=== PATIENT | female | born 1965 | race Caucasian/White ===

== ENCOUNTER 2017-02-27 10:25 | Emergency (ER) | payer OTHER ==
[~2017-02-27] VITALS: Ht 152.4 cm; Wt 58.1 kg
[~2017-02-27 10:25] MED LIST: ATEN50TA2 PO; BENA40TA PO; HYDR25TA32 PO; METF500T PO
[2017-02-27 10:42] VITALS: BP 153/70
[2017-02-27] MEDS ORDERED: SIMV10TA1 PO (10:49)
--- NOTE | 2017-02-27 11:05 | NUR ---
aPT PRESENTS TO ER W/C/O DIZZINESS SINCE THIS AM. HX DM, HTN, HYPERLIPIDEMIA.pt feels nauseous and vomitted this morning; SKIN IS PINK/WARM/DRY; AAOX4 WITH EVEN AND STEADY GAIT; LUNGS CLEAR BL; HR EVEN AND REGULAR; PT DENIES ANY FEVER, CP, SOB, OR COUGH AT THIS TIME; PATIENT STATES PAIN OF 4/10 headcahe AT THIS TIME;PATIENT POSITIONED FOR COMFORT; HOB ELEVATED; BEDRAILS UP X2; BED DOWN. ER MD MADE will be notified.
--- NOTE | 2017-02-27 11:13 | NUR ---
PT WENT TO CT SCAN ACCOMPANIED BY TECH.
--- NOTE | 2017-02-27 11:23 | NUR ---
BACK FROM CT SCAN;ACCOMPANIED BY TECH;NO ACUTE DISTRESS NOTED;WILL CONTINUE TO MONITOR PT.
[2017-02-27] MEDS ORDERED: MECLIZINE 25 MG TAB PO ONE (11:45)
--- NOTE | 2017-02-27 12:09 | NUR ---
PT RESTING ON BED;NO ACUTE DISTRESS NOTED;ALL MONITORS IN PLACED;WILL CONTINUE TO MONITOR PT.
--- NOTE | 2017-02-27 12:11 | NUR ---
PT VERBALIZES DECREASE OF PAIN FROM 4/10 TO 2/10 SCALE;NO MOANING/FACIAL GRIMMACING NOTED;WILL CONTINUE TO MONITOR PT.
--- NOTE | 2017-02-27 13:08 | NUR ---
Patient discharged with v/s stable. Written and verbal after care instructions given and explained. Patient alert, oriented and verbalized understanding of instructions. Ambulatory with steady gait. All questions addressed prior to discharge. ID band removed. Patient advised to follow up with PMD. Rx of MOTRIN AND MECLIZINE given. Patient educated on indication of medication including possible reaction and side effects. Opportunity to ask questions provided and answered.
[2017-02-27 13:09] VITALS: BP 125/71
== END 2017-02-27 13:08 | disposition home or self-care (01) ==
LOC: MED 10:25
DX: R42 Dizziness and giddiness (principal); I10 Essential (primary) hypertension; E11.9 Type 2 diabetes mellitus without complications
CPT/HCPCS: 70450; 82948; 99284; J8597

== ENCOUNTER 2017-08-12 05:55 | Emergency (ER) | payer OTHER ==
[~2017-08-12] VITALS: Ht 154.9 cm; Wt 57.4 kg
[~2017-08-12 05:55] MED LIST changes: +SIMV10TA1 PO
[2017-08-12 06:08] VITALS: BP 116/75
--- NOTE | 2017-08-12 06:35 | NUR ---
PT TAKEN TO BED 12
--- NOTE | 2017-08-12 06:39 | NUR ---
52 Y/O F W/C/O EPIGASTRIC PAIN/NAUSEA/VOMITING X YESTERDAY. MED HX DM, HIGH CHOLESTEROL, DM. ER MD MADE AWARE.
[2017-08-12] MEDS ORDERED: KETOROLAC 30 MG/ML VIAL IVP ONE (07:00)
[2017-08-12] MEDS ORDERED: FAMOTIDINE 20 MG/2 ML VIAL IVP ONE (07:00)
[2017-08-12] MEDS ORDERED: NACL 0.9% 1,000 ML IV ONE (07:00)
[2017-08-12] MEDS ORDERED: ONDANSETRON 4 MG/2 ML VIAL IVP ONE (07:00)
--- NOTE | 2017-08-12 07:00 | NUR ---
Dr. Gates evaluating patient at bedside.
--- NOTE | 2017-08-12 07:28 | NUR ---
Pt report given to JO Saez. Transfer of care at this time.
--- NOTE | 2017-08-12 07:28 | NUR ---
RECEIVED REPORT FROM JO YEE. PT IS AOX4, RR ARE EVEN AND UNLABORED. NAD. PT TO CT VIA W/C ACCOMPANIED BY MAP AND CHART MOUNTER.
[2017-08-12 07:41] LABS: BASOPHILS # (AUTO) 0.1 K/uL (0.00-0.22); BASOPHILS % (AUTO) 0.6 % (0.0-2.0); EOSINOPHILS # (AUTO) 0.1 K/uL (0-0.4); EOSINOPHILS % (AUTO) 0.6 % (0.0-4.0); HEMATOCRIT 44.8 % (36-48); HEMOGLOBIN 15.1 g/dL (12.0-16.0); LYMPHOCYTES # (AUTO) 0.5 K/uL (2.5-16.5); LYMPHOCYTES % (AUTO) 4.7 % (20.5-51.1); MEAN CORPUSCULAR HEMOGLOBIN 28 pg (27-31); MEAN CORPUSCULAR HGB CONC 34 g/dL (33-37); MEAN CORPUSCULAR VOLUME 84 fL (80-94); MONOCYTES # (AUTO) 0.5 K/uL (0.8-1.0); NEUTROPHILS # (AUTO) 9.5 K/uL (1.8-7.7); NEUTROPHILS % (AUTO) 89.1 % (42.2-75.2); PLATELET COUNT (AUTO) 374 K/uL (140-450); RED BLOOD CELL COUNT(AUTO) 5.35 MIL/uL (4.20-5.40); RED CELL DISTRIBUTION WIDTH 11.7 % (11.6-13.7)
[2017-08-12 07:42] LABS: WHITE BLOOD COUNT (AUTO) 10.7 K/uL (4.8-10.8)
--- NOTE | 2017-08-12 07:45 | NUR ---
PT RETURNED FROM RADIOLOGY VIA W/C BACK TO [facility] WITHOUT INCIDENT.
[2017-08-12 07:56] LABS: ANION GAP 14.1 (8-16); CARBON DIOXIDE 27.1 mmol/L (21-32); CREATININE 0.6 mg/dL (0.6-1.3); POTASSIUM 3.2 mmol/L (3.5-5.1)
[2017-08-12 07:57] LABS: PROTHROMBIN TIME 10.9 secs (10.8-13.4)
[2017-08-12 08:02] LABS: TOTAL BILIRUBIN 0.5 mg/dL (0.0-1.0)
[2017-08-12 08:03] LABS: ALBUMIN 4.1 g/dL (3.4-5.0)
--- NOTE | 2017-08-12 08:45 | NUR ---
PT LAYING SUPINE IN [facility]; NAD; ALL NEEDS MET AT THIS TIME; WILL CONTINUE TO MONTIOR
[2017-08-12 09:31] LABS: BILIRUBIN,URINE NEGATIVE (NEGATIVE); BLOOD, URINE 2+ (NEGATIVE); COLOR,URINE YELLOW (YELLOW); LEUKOCYTE ESTERASE ,URINE NEGATIVE (NEGATIVE); NITRITE, URINE POSITIVE (NEGATIVE); UGLUCOSE TRACE (NEGATIVE)
[2017-08-12 09:35] LABS: APPEARANCE,URINE HAZY (CLEAR)
[2017-08-12 09:36] LABS: RBC,URINE 3-10 (FEW) /HPF (0-5); WBC,URINE 0-5 (RARE) /HPF (0-5)
[2017-08-12] MEDS ORDERED: cefTRIAXone 1,000 MG VIAL ONE (09:40)
--- NOTE | 2017-08-12 09:43 | NUR ---
IVBP ABX INFUSING W/O DIFFICULTLY; PT DENIES ANY PAIN AT THIS TIME; NAD; ALL NEEDS MET AT THIS TIME; WILL CONTINUE TO MONITOR.
[2017-08-12 10:32] VITALS: BP 109/74
--- NOTE | 2017-08-12 10:32 | NUR ---
Patient discharged with v/s stable. Written and verbal after care instructions given and explained. Patient alert, oriented and verbalized understanding of instructions. Ambulatory with steady gait. All questions addressed prior to discharge. ID band removed. Patient advised to follow up with PMD. Rx of Keflex and Tramadol given. Patient educated on indication of medication including possible reaction and side effects. Opportunity to ask questions provided and answered.
== END 2017-08-12 10:32 | disposition home or self-care (01) ==
LOC: MED 05:55
DX: N39.0 Urinary tract infection, site not specified (principal); R10.13 Epigastric pain; E11.9 Type 2 diabetes mellitus without complications; I10 Essential (primary) hypertension; Z79.899 Other long term (current) drug therapy; Z79.84 Long term (current) use of oral hypoglycemic drugs
CPT/HCPCS: 36415; 74176; 76705; 80053; 81001; 82150; 83690; 85025; 85610; 85730; 96361; 96365; 96375; 99285; J0696; J1885; J2405; J3490; J7030

== ENCOUNTER 2019-01-17 09:44 | Emergency (ER) | payer BC, OTHER ==
[~2019-01-17] VITALS: Ht 149.9 cm; Wt 55.3 kg
[2019-01-17 09:49] VITALS: BP 123/78
--- NOTE | 2019-01-17 09:52 | NUR ---
Patient ambulated to bed 3 with family. RN evaluating patient at bedside.
--- NOTE | 2019-01-17 10:00 | NUR ---
C/O SORE THROAT & COUGH X 2 DAYS. LUNGS CLEAR AND EQUAL BILAT, BREATHING UNLABORED, O2 SAT 98% RA, DENIES DIFFICULTY SWALLOWING, FEVER, N/V/D. PT IS CURRENTLY TAKING BACTRIM FOR UTI STARTING 01/09/19. PT SITTING UP IN BED, AT BEDSIDE. BED IN LOW POSITION.
--- NOTE | 2019-01-17 10:20 | NUR ---
ERMD AT BEDSIDE
[2019-01-17] MEDS ORDERED: KETOROLAC 60 MG/2 ML VIAL IM ONE (10:30)
[2019-01-17 11:01] VITALS: BP 120/78
--- NOTE | 2019-01-17 11:02 | NUR ---
Patient discharged with v/s stable. Written and verbal after care instructions given and explained. Patient verbalized understanding. Ambulatory with steady gait. All questions addressed prior to discharge. Advised to follow up with PMD. PRESCRIPTION OF PROMETHAZINE AND MOTRIN GIVEN.
== END 2019-01-17 11:02 | disposition home or self-care (01) ==
LOC: MED 09:44
DX: J06.9 Acute upper respiratory infection, unspecified (principal); E11.9 Type 2 diabetes mellitus without complications; I10 Essential (primary) hypertension; Z79.84 Long term (current) use of oral hypoglycemic drugs; Z79.899 Other long term (current) drug therapy
CPT/HCPCS: 96372; 99283; J1885